=== PATIENT | female | born 1945 | race Caucasian/White ===

== ENCOUNTER 2017-10-27 08:28 | Inpatient (IN) | payer MEDICARE, OTHER ==
[2017-10-27] MEDS: IPRATRPIUM/ALBUTEROL 0.5/2.5MG 3 ML NEBU. NEB ×5 (09:00→19:58)
[2017-10-27] MEDS: methylPREDNISolone SOD SUCC PF 125 MG/2 ML VIAL. IV (09:02)
[2017-10-27 09:29] LABS: BASE EXCESS ABG 1 mmol/L (-3-3); HCO3 ABG 25 mmol/L (21-28); PCO2 ABG 35 mmHg (35-46); PH ABG 7.47 (7.35-7.45); PO2 ABG 84 mmHg (65-108); SAT O2 ABG 95 % (92-99)
[2017-10-27 09:33] LABS: BASO % 0 % (0-3); EOS # 0.2 x10^3/uL (0.0-0.7); EOS % 1 % (0-3); HEMATOCRIT 24.6 % (36.0-47.0); HEMOGLOBIN 8.3 g/dL (12.0-15.5); LYMPH # 0.8 x10^3/uL (1.0-4.8); LYMPH % 5 % (24-48); MEAN CORPUSCULAR HEMOGLOBIN 30 pg (25-35); MEAN CORPUSCULAR HGB CONC 34 g/dL (31-37); MEAN CORPUSCULAR VOLUME 89 fL (79-100); MONO # 1.3 x10^3/uL (0.0-1.1); MONO % 8 % (0-9); NEUT # 14.5 x10^3uL (1.8-7.7); NEUT % 86 % (31-73); PLATELET COUNT 207 x10^3/uL (140-400); RED BLOOD COUNT 2.77 x10^6/uL (3.50-5.40); RED CELL DISTRIBUTION WIDTH 15.3 % (11.5-14.5); WHITE BLOOD COUNT 16.8 x10^3/uL (4.0-11.0)
[2017-10-27 09:34] LABS: ADD MAN DIFF? YES
[2017-10-27 09:40] LABS: INR 1.2 (0.8-1.1); PROTHROMBIN TIME PATIENT 14.3 SEC (11.7-14.0)
[2017-10-27 09:44] LABS: ANION GAP 7 (6-14); BLOOD UREA NITROGEN 32 mg/dL (7-20); BUN/CREATININE RATIO 29 (6-20); CALCIUM 8.7 mg/dL (8.5-10.1); CARBON DIOXIDE 27 mmol/L (21-32); CHLORIDE 108 mmol/L (98-107); CREATININE 1.1 mg/dL (0.6-1.0); GFR 48.8; GLUCOSE 153 mg/dL (70-99); POTASSIUM 4.2 mmol/L (3.5-5.1); SODIUM 142 mmol/L (136-145)
[2017-10-27 09:50] LABS: ALBUMIN 2.7 g/dL (3.4-5.0); ALBUMIN/GLOBULIN RATIO 0.8 (1.0-1.7); ALK PHOS 85 U/L (46-116); ALT (SGPT) 22 U/L (14-59); AST (SGOT) 16 U/L (15-37); MAGNESIUM 1.8 mg/dL (1.8-2.4); TOTAL BILIRUBIN 0.6 mg/dL (0.2-1.0); TOTAL PROTEIN 5.9 g/dL (6.4-8.2)
[2017-10-27 09:52] LABS: % BANDS 6 % (0-9); % LYMPHS 7 % (24-48); % MONOS 6 % (0-10); % SEGS 81 % (35-66); PLT ESTIMATE ADEQUATE (ADEQUATE)
[2017-10-27 09:57] LABS: NT-PRO BNP 8246 pg/mL (0-124)
[2017-10-27 09:57] LABS: CKMB MASS 1.2 ng/mL (0.0-3.6); CREATINE KINASE 68 U/L (26-192)
[2017-10-27 09:58] LABS: THYROID STIM HORMONE (TSH) 2.292 uIU/mL (0.358-3.74)
[2017-10-27] MEDS: ASPIRIN 325 MG TABLET PO (10:09)
[2017-10-27] MEDS ORDERED: fentaNYL PF VIAL 100 MCG/2 ML VIAL IV (10:15)
[2017-10-27] MEDS ORDERED: ACETAMINOPHEN 325 MG TABLET. PO (10:15)
[2017-10-27] MEDS ORDERED: ONDANSETRON PF 4 MG/2 ML VIAL. IV ×2 (10:15→10:30)
[2017-10-27 10:17] LABS: OVALOCYTES FEW
[2017-10-27] MEDS ORDERED: hydrALAZINE 20 MG/ML VIAL. IVP ×2 (10:30→14:15)
[2017-10-27] MEDS ORDERED: IBUPROFEN 400 MG TABLET. PO (10:30)
[2017-10-27] MEDS ORDERED: guaiFENesin DM 200MG/20MG 10 ML SYRUP PO (10:30)
[2017-10-27 10:44] LABS: BILIRUBIN,URINE NEGATIVE (NEG); CLARITY,URINE CLEAR; GLUCOSE,URINE NEGATIVE (NEG); NITRITE,URINE NEGATIVE (NEG); PH,URINE 6.5; PROTEIN,URINE 30 mg/dL (NEG-TRACE); UROBILINOGEN,URINE 0.2 mg/dL (0.2 mg/dL)
[2017-10-27 10:49] LABS: COLOR,URINE YELLOW
[2017-10-27] MEDS: FUROSEMIDE 20 MG/2 ML VIAL. IVP ×2 (10:52→15:03)
[2017-10-27 11:02] LABS: AMORPHOUS SEDIMENT,UR PRESENT /HPF; SQUAMOUS EPITHELIAL CELL,UR FEW /LPF
[2017-10-27 11:03] LABS: BACTERIA,URINE FEW /HPF (0-FEW)
[2017-10-27] MEDS: SENNOSIDES/DOCUSATE 8.6/50MG TABLET. PO (11:30)
[2017-10-27] MEDS: CALCIUM CARB/VIT D3 250/125 TABLET. PO ×2 (11:30→17:41)
[2017-10-27] MEDS: hydroCHLOROthiazide 25 MG TABLET PO (11:30)
[2017-10-27] MEDS: DOCUSATE SODIUM 100 MG CAPSULE. PO ×2 (11:30→21:38)
[2017-10-27] MEDS: LEVOTHYROXINE 25 MCG TABLET. PO (11:30)
[2017-10-27] MEDS: LISINOPRIL 20 MG TABLET PO (11:30)
[2017-10-27] MEDS: CHOLECALCIFEROL (VITAMIN D3) 1,000 UNIT TABLET PO (11:30)
[2017-10-27] MEDS: cloZAPine 100 MG TABLET PO ×2 (11:30→21:39)
[2017-10-27] MEDS: EZETIMIBE 10 MG TABLET. PO (11:30)
[2017-10-27] MEDS: FLUoxetine HCL 20 MG CAPSULE PO (11:30)
[2017-10-27] MEDS: carBAMazepine 200 MG TABLET PO (11:30)
[2017-10-27] MEDS: NYSTATIN TOPICAL POWDER 15GM BOTTLE. TP ×2 (15:02→21:39)
[2017-10-27] MEDS: ENOXAPARIN 40 MG/0.4 ML SYRINGE. SQ (15:03)
[2017-10-27] MEDS: amLODIPine BESYLATE 5 MG TABLET PO (15:04)
[2017-10-27 16:24] LABS: TROPONINI 0.092 ng/mL (0.000-0.055)
[2017-10-27] MEDS ORDERED: cloZAPine 100 MG TABLET PO (21:00)
[2017-10-27] MEDS ORDERED: DOCUSATE CALCIUM 240 MG PO (21:00)
[2017-10-28 04:28] LABS: ALBUMIN 2.4 g/dL (3.4-5.0); ALBUMIN/GLOBULIN RATIO 0.8 (1.0-1.7); ALK PHOS 75 U/L (46-116); ALT (SGPT) 18 U/L (14-59); ANION GAP 11 (6-14); AST (SGOT) 14 U/L (15-37); BLOOD UREA NITROGEN 32 mg/dL (7-20); BUN/CREATININE RATIO 27 (6-20); CALCIUM 8.8 mg/dL (8.5-10.1); CARBON DIOXIDE 25 mmol/L (21-32); CHLORIDE 106 mmol/L (98-107); CREATININE 1.2 mg/dL (0.6-1.0); GFR 44.2; GLUCOSE 106 mg/dL (70-99); SODIUM 142 mmol/L (136-145); TOTAL BILIRUBIN 0.5 mg/dL (0.2-1.0); TOTAL PROTEIN 5.4 g/dL (6.4-8.2)
[2017-10-28] MEDS: LEVOTHYROXINE 25 MCG TABLET. PO (06:11)
[2017-10-28] MEDS: IPRATRPIUM/ALBUTEROL 0.5/2.5MG 3 ML NEBU. NEB ×3 (07:33→15:33)
[2017-10-28] MEDS: cloZAPine 100 MG TABLET PO (08:11)
[2017-10-28] MEDS: CALCIUM CARB/VIT D3 250/125 TABLET. PO (08:11)
[2017-10-28] MEDS: CHOLECALCIFEROL (VITAMIN D3) 1,000 UNIT TABLET PO (08:12)
[2017-10-28] MEDS: carBAMazepine 200 MG TABLET PO (08:12)
[2017-10-28] MEDS: SENNOSIDES/DOCUSATE 8.6/50MG TABLET. PO (08:12)
[2017-10-28] MEDS: amLODIPine BESYLATE 5 MG TABLET PO (08:13)
[2017-10-28] MEDS: FUROSEMIDE 40 MG TABLET. PO (08:14)
[2017-10-28] MEDS: DOCUSATE SODIUM 100 MG CAPSULE. PO (08:14)
[2017-10-28] MEDS: LISINOPRIL 20 MG TABLET PO (08:15)
[2017-10-28] MEDS: FLUoxetine HCL 20 MG CAPSULE PO (08:15)
[2017-10-28] MEDS: EZETIMIBE 10 MG TABLET. PO (08:16)
[2017-10-28] MEDS: NYSTATIN TOPICAL POWDER 15GM BOTTLE. TP (08:18)
[2017-10-28] MEDS ORDERED: FLUoxetine HCL 20 MG CAPSULE PO (09:00)
[2017-10-28] MEDS ORDERED: ALBUTEROL SULFATE 2.5 MG/3 ML NEBU. NEB (09:30)
[2017-10-28] MEDS: ENOXAPARIN 40 MG/0.4 ML SYRINGE. SQ (13:04)
== END 2017-10-28 15:30 | disposition home or self-care (01) | DRG 280 ==
LOC: ER 08:28 → 2 NORTH 10:09
DX: I25.10 Atherosclerotic heart disease of native coronary artery without angina pectoris (principal); I50.33 Acute on chronic diastolic (congestive) heart failure; I21.4 Non-ST elevation (NSTEMI) myocardial infarction; J96.21 Acute and chronic respiratory failure with hypoxia; I13.0 Hypertensive heart and chronic kidney disease with heart failure and stage 1 through stage 4 chronic kidney disease, or unspecified chronic kidney disease; F03.91 Unspecified dementia, unspecified severity, with behavioral disturbance; I44.2 Atrioventricular block, complete; J44.0 Chronic obstructive pulmonary disease with (acute) lower respiratory infection; N17.9 Acute kidney failure, unspecified; D64.9 Anemia, unspecified; E03.9 Hypothyroidism, unspecified; E78.00 Pure hypercholesterolemia, unspecified; E78.5 Hyperlipidemia, unspecified; F20.9 Schizophrenia, unspecified; I25.2 Old myocardial infarction; I73.9 Peripheral vascular disease, unspecified; K21.9 Gastro-esophageal reflux disease without esophagitis; N18.3 Chronic kidney disease, stage 3 (moderate); Z86.73 Personal history of transient ischemic attack (TIA), and cerebral infarction without residual deficits; Z87.01 Personal history of pneumonia (recurrent); F32.9 Major depressive disorder, single episode, unspecified; G47.00 Insomnia, unspecified; H26.9 Unspecified cataract; M19.90 Unspecified osteoarthritis, unspecified site; Z88.0 Allergy status to penicillin; Z88.2 Allergy status to sulfonamides; Z88.8 Allergy status to other drugs, medicaments and biological substances; Z98.49 Cataract extraction status, unspecified eye; Z53.20 Procedure and treatment not carried out because of patient's decision for unspecified reasons
CPT/HCPCS: 36415; 51701; 71045; 80053; 81001; 82553; 82805; 83735; 83880; 84443; 84484; 85007; 85025; 85610; 93005; 94640; 94760; 96365; 96375; 97162-GP; 97166-GO; 97530-GO; 97535-GO; 99285; 99285-25; J1650; J1956; J2930; J7620

== ENCOUNTER 2019-07-08 13:43 | Emergency (ER) | payer MEDICARE, OTHER ==
[~2019-07-08] VITALS: Ht 162.6 cm; Wt 88.0 kg
[~2019-07-08 13:43] MED LIST: CALC-178 PO; CARB200T PO; CEFP100T PO; CHOL10003 PO; CLOZ100T PO; CLOZ200T PO; DIPH25TA64 PO; DOCU-109 PO; DOCU240C13 PO; EZET10TA20 PO; FLUO20CA20 PO; FLUO40CA9 PO; FURO-68 PO; HYDR-2145 PO; HYDR12.58 PO; IBUP-1027 PO; IBUP200T77 PO; IPRA3AMP29 NEB; LEVO25TA4 PO; LISI-130 PO; LISI-334 PO; LISI10TA2 PO; MAGN400O7 PO; NYST15CR2 TP; NYST15PO9 TP; SENN1TAB29 PO
[2019-07-08] MEDS ORDERED: IV NORMAL SALINE 1000ML BAG 1,000 ML IV ONE (14:00)
--- NOTE | 2019-07-08 14:03 | PHYS DOC ---
Past Medical History Past Medical History: Anemia, Arthritis, Constipation, Depression, GERD, High Cholesterol, Hypertension, Hypothyroid, Schizophrenia, Other Additional Past Medical Histor: Varicose veins, PVD, Insomnia, OCD Past Surgical History: Cancer Surgery, Tonsillectomy, Other Additional Past Surgical Histo: right breast tumor removal, cataract surgery Smoking Status: Never Smoker Alcohol Use: Sober Drug Use: None Adult General Chief Complaint Chief Complaint: Weakness, Falls HPI HPI Patient is a 73 year old female who is brought to the ER by EMS from a long term facility secondary to increased falling today. The patient has a history of falls but reportedly has fallen 4 times today secondary to reported weakness and concern for possible UTI. A urinalysis was not able to be performed prior to transport. There is been no fever or chills. Patient does report a cough recently. She denies extremity pain or pain elsewhere from her falls and has not struck her head. No chest pain or shortness of breath. The patient was hypoxic slightly in the emergency department 87% on room air so she was placed on 2 L nasal cannula and she is now satting 95%. Review of Systems Review of Systems All other ROS is negative unless otherwise stated in HPI Current Medications Current Medications Current Medications Medications (Trade) Dose Ordered Sig/Flora Start Time Stop Time Status Last Admin Dose Admin Sodium Chloride 1,000 ml @ 1,000 mls/hr 1X ONCE 07/08/19 14:00 07/08/19 14:59 DC 07/08/19 14:44 1,000 MLS/HR Allergies Allergies Allergies Coded Allergies Type Severity Reaction Last Updated Verified Penicillins Allergy Intermediate HAS PREVIOUSLY TOLERATED CEFEPIME 10/14/17 Yes risperidone Allergy Intermediate 08/25/13 Yes sulfamethoxazole Allergy Intermediate 08/25/13 Yes trimethoprim Allergy Intermediate 08/25/13 Yes acetaminophen Adverse Reaction Intermediate AMS 03/13/15 Yes Physical Exam Physical Exam See above Constitutional: Well developed, well nourished, no acute distress, non-toxic appearance. [] HENT: Normocephalic, atraumatic, bilateral external ears normal, oropharynx moist, no oral exudates, nose normal. [] Eyes: PERRLA, EOMI, conjunctiva normal, no discharge. [] Neck: Normal range of motion, no tenderness, supple, no stridor. [] Cardiovascular:Heart rate regular rhythm, no murmur [] Lungs & Thorax: Bilateral breath sounds clear to auscultation [] Abdomen: Bowel sounds normal, soft, no tenderness, no masses, no pulsatile masses. [] Skin: Warm, dry, no erythema, erythematous rash underneath her breasts consistent with yeast infection Back: No tenderness, no CVA tenderness. [] Extremities: No tenderness, no cyanosis, no clubbing, ROM intact, no edema. [] Neurologic: Alert and oriented X 3, normal motor function, normal sensory function, no focal deficits noted. [] Psychologic: Affect normal, judgement normal, mood normal. [] Current Patient Data Vital Signs Vital Signs Date Time Temp Pulse Resp B/P (MAP) Pulse Ox O2 Delivery O2 Flow Rate FiO2 07/08/19 15:42 26 92 07/08/19 13:43 97.7 65 165/72 (103) Nasal Cannula 2.0 97.7 Lab Values Laboratory Tests Test 07/08/19 14:20 07/08/19 14:25 White Blood Count 9.3 x10^3/uL (4.0-11.0) Red Blood Count 3.40 x10^6/uL (3.50-5.40) L Hemoglobin 9.5 g/dL (12.0-15.5) L Hematocrit 29.1 % (36.0-47.0) L Mean Corpuscular Volume 86 fL (79-100) Mean Corpuscular Hemoglobin 28 pg (25-35) Mean Corpuscular Hemoglobin Concent 33 g/dL (31-37) Red Cell Distribution Width 15.9 % (11.5-14.5) H Platelet Count 254 x10^3/uL (140-400) Neutrophils (%) (Auto) 81 % (31-73) H Lymphocytes (%) (Auto) 8 % (24-48) L Monocytes (%) (Auto) 9 % (0-9) Eosinophils (%) (Auto) 1 % (0-3) Basophils (%) (Auto) 1 % (0-3) Neutrophils # (Auto) 7.5 x10^3/uL (1.8-7.7) Lymphocytes # (Auto) 0.8 x10^3/uL (1.0-4.8) L Monocytes # (Auto) 0.8 x10^3/uL (0.0-1.1) Eosinophils # (Auto) 0.1 x10^3/uL (0.0-0.7) Basophils # (Auto) 0.0 x10^3/uL (0.0-0.2) Prothrombin Time 14.0 SEC (11.7-14.0) Prothrombin Time INR 1.1 (0.8-1.1) Activated Partial Thromboplast Time 26 SEC (24-38) Sodium Level 143 mmol/L (136-145) Potassium Level 3.6 mmol/L (3.5-5.1) Chloride Level 106 mmol/L (98-107) Carbon Dioxide Level 29 mmol/L (21-32) Anion Gap 8 (6-14) Blood Urea Nitrogen 18 mg/dL (7-20) Creatinine 1.4 mg/dL (0.6-1.0) H Estimated GFR (Cockcroft-Gault) 36.9 Glucose Level 136 mg/dL (70-99) H Calcium Level 8.9 mg/dL (8.5-10.1) Troponin I Quantitative 0.029 ng/mL (0.000-0.055) JN-Ufz-[id number]-Type Natriuretic Peptide 7597 pg/mL (0-124) H Urine Collection Type Void Urine Color Yellow Urine Clarity Clear Urine pH 7.5 Urine Specific [place] 1.015 Urine Protein Negative mg/dL (NEG-TRACE) Urine Glucose (UA) Negative mg/dL (NEG) Urine Ketones (Stick) Negative mg/dL (NEG) Urine Blood Negative (NEG) Urine Nitrite Negative (NEG) Urine Bilirubin Negative (NEG) Urine Urobilinogen Dipstick 0.2 mg/dL (0.2 mg/dL) Urine Leukocyte Esterase Small (NEG) Urine RBC Rare /HPF (0-2) Urine WBC 5-10 /HPF (0-4) Urine Squamous Epithelial Cells Mod /LPF Urine Bacteria Moderate /HPF (0-FEW) Urine Mucus Mod /LPF Influenza Type A Antigen Negative (NEGATIVE) Influenza Type B Antigen Negative (NEGATIVE) Laboratory Tests 07/08/19 14:20 Laboratory Tests 07/08/19 14:20 EKG EKG []EKG shows a normal sinus rhythm with frequent PVCs and a normal [place], QRS intervals she has a prolonged QT interval. Radiology/Procedures Radiology/Procedures CHEST AP ONLY Clinical Indication: Weakness Comparison: 10/27/2017 Portable Chest X-ray Exam. Findings: AP frontal view of the chest was obtained. Patient is rotated and this may limit assessment. Heart size is within normal limits. Pulmonary vasculature is within the upper limit of normal. Left basilar pleural effusion is present. No pneumothorax. Osteopenia noted. Moderate right glenohumeral joint degenerative changes are present. IMPRESSION: Left basilar pleural effusion and atelectasis are similar to the prior exam. Correlate clinically in determining follow-up. []Examination: CT HEAD WO CONTRAST History: Fall, pain Comparison/Correlation: 08/25/2013 CT head without contrast Findings: Axial images of the head were obtained without contrast. Atrophy and chronic changes in the white matter are present. No intracranial hemorrhage, midline shift, or mass effect. 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 Right occipital lobe infarct is present and probably old. These findings however are not present on the prior exam. There is significant calcific involvement of the cavernous carotid arteries and vertebral arteries. Globes are unremarkable. Partial opacification of the left maxillary sinus is noted. Minimal opacities in the left sphenoid sinus is present. Bony structures are unremarkable. Impression: No intracranial hemorrhage. Infarcts are present and probably old. Correlate clinically in determining the need for further assessment. Course & Med Decision Making Course & Med Decision Making Pertinent Labs and Imaging studies reviewed. (See chart for details) We will obtain labs, EKG, chest x-ray and urinalysis and CT head to evaluate for frequent falls. This could be patient's baseline or she could have an underlying infection or intracranial injury. 1533: This completes and she does appear to have a small urinary tract inf ection but this is causing her increased falling. CT scan of her head was performed and showed what appears to be old infarcts. Her BNP is elevated but the patient does have congestive heart failure and she does not appear to be overtly symptomatic; she is currently on 1 L nasal cannula oxygen but when I review her records it appears that the patient has been hypoxic without oxygen since 2018. Nursing staff is currently calling the long term facility to see if the patient is normally on oxygen. 1545: long term reports that the patient is not normally on oxygen daily. We have weaned her off nasal cannula oxygen her oxygen saturation has remained 92% plus. This time she was discharged home with a prescription for Bactrim twice daily for 3 days [place] Disclaimer Dragon Disclaimer This electronic medical record was generated, in whole or in part, using a voice recognition dictation system. Departure Departure Impression: Primary Impression: Falls frequently Additional Impressions: UTI (urinary tract infection) Congestive heart failure Disposition: HOME, SELF-CARE (Back to long term) Condition: STABLE Referrals: MAL ONOFRE (PCP) Follow up in 5-7 days for ongoing falls Patient Instructions: Fall Prevention and Home Safety Scripts Sulfamethoxazole/Trimethoprim (BACTRIM DS TABLET) 1 Each Tablet 1 TAB PO BID for 3 Days, #6 TAB 0 Refills Prov: MAGDI DELGADO DO 07/08/19 Problem Qualifiers MAGDI DELGADO DO Jul 08, 2019 14:03
[2019-07-08 14:28] LABS: BASO % 1 % (0-3); EOS # 0.1 x10^3/uL (0.0-0.7); EOS % 1 % (0-3); HEMATOCRIT 29.1 % (36.0-47.0); HEMOGLOBIN 9.5 g/dL (12.0-15.5); LYMPH # 0.8 x10^3/uL (1.0-4.8); LYMPH % 8 % (24-48); MEAN CORPUSCULAR HEMOGLOBIN 28 pg (25-35); MEAN CORPUSCULAR HGB CONC 33 g/dL (31-37); MEAN CORPUSCULAR VOLUME 86 fL (79-100); MONO # 0.8 x10^3/uL (0.0-1.1); MONO % 9 % (0-9); NEUT # 7.5 x10^3/uL (1.8-7.7); NEUT % 81 % (31-73); PLATELET COUNT 254 x10^3/uL (140-400); RED CELL DISTRIBUTION WIDTH 15.9 % (11.5-14.5); WHITE BLOOD COUNT 9.3 x10^3/uL (4.0-11.0)
[2019-07-08 14:35] LABS: CALCIUM 8.9 mg/dL (8.5-10.1); CREATININE 1.4 mg/dL (0.6-1.0); GFR 36.9; POTASSIUM 3.6 mmol/L (3.5-5.1)
--- NOTE | 2019-07-08 14:47 | RAD ---
Examination: CT HEAD WO CONTRAST History: Fall, pain Comparison/Correlation: 08/25/2013 CT head without contrast Findings: Axial images of the head were obtained without contrast. Atrophy and chronic changes in the white matter are present. No intracranial hemorrhage, midline shift, or mass effect. 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 Right occipital lobe infarct is present and probably old. These findings however are not present on the prior exam. There is significant calcific involvement of the cavernous carotid arteries and vertebral arteries. Globes are unremarkable. Partial opacification of the left maxillary sinus is noted. Minimal opacities in the left sphenoid sinus is present. Bony structures are unremarkable. Impression: No intracranial hemorrhage. Infarcts are present and probably old. Correlate clinically in determining the need for further assessment. PQRS Compliance Statement: One or more of the following individualized dose reduction techniques were utilized for this examination: 1. Automated exposure control 2. Adjustment of the mA and/or kV according to patient size 3. Use of iterative reconstruction technique Electronically signed by: Zana Arias MD (07/08/2019 2:44 PM) [facility]
--- NOTE | 2019-07-08 14:48 | RAD ---
CHEST AP ONLY Clinical Indication: Weakness Comparison: 10/27/2017 Portable Chest X-ray Exam. Findings: AP frontal view of the chest was obtained. Patient is rotated and this may limit assessment. Heart size is within normal limits. Pulmonary vasculature is within the upper limit of normal. Left basilar pleural effusion is present. No pneumothorax. Osteopenia noted. Moderate right glenohumeral joint degenerative changes are present. IMPRESSION: Left basilar pleural effusion and atelectasis are similar to the prior exam. Correlate clinically in determining follow-up. Electronically signed by: Zana Arias MD (07/08/2019 2:45 PM) [facility]
[2019-07-08 15:00] LABS: BILIRUBIN,URINE NEGATIVE (NEG); CLARITY,URINE CLEAR; COLOR,URINE YELLOW; NITRITE,URINE NEGATIVE (NEG); PH,URINE 7.5; PROTEIN,URINE NEGATIVE (NEG-TRACE); UROBILINOGEN,URINE 0.2 mg/dL (0.2 mg/dL)
[2019-07-08 15:09] LABS: BACTERIA,URINE MODERATE /HPF (0-FEW); RBC,URINE RARE /HPF (0-2); SQUAMOUS EPITHELIAL CELL,UR MOD /LPF
[2019-07-08 15:22] LABS: INFLUENZA A PATIENT NEGATIVE (NEGATIVE); INFLUENZA B PATIENT NEGATIVE (NEGATIVE)
[2019-07-08] MEDS ORDERED: SULF1TAB24 PO (15:48)
--- NOTE | 2019-07-08 16:08 | EKG ---
[facility] [address] [place] [address] Test Date: 2019-07-08 Test Time: 13:56:39 Pat Name: BIRGIT MURCIA Department: Room: Gender: F Zipper Trimmer: : 1945 Requested By: MAGDI DELGADO Order Number: [id number] Reading MD: Measurements Intervals [place] Rate: 63 P: 90 MN: 164 QRS: 15 QRSD: 86 T: -8 QT: 522 QTc: 543 Interpretive Statements SINUS RHYTHM COMPLEX(ES) WITH ABERRANT INTRAVENTRICULAR CONDUCTION VENTRICULAR PREMATURE COMPLEX(ES), TRIGEMINY QRS(T) CONTOUR ABNORMALITY CANNOT RULE OUT ANTEROLATERAL MYOCARDIAL DAMAGE T ABNORMALITY IN ANTERIOR LEADS INFEROLATERAL LEADS PROLONGED QT ABNORMAL ECG No previous ECG available for comparison
[2019-07-08] MEDS ORDERED: SMZ/TMP 800/160MG TABLET. PO ONE (16:30)
[2019-07-08] MEDS ORDERED: NITROFURANTOIN MONOHYD/M-CRYST 100 MG CAPSULE. PO ONE (16:30)
[2019-07-08 17:44] VITALS: BP 173/79
== END 2019-07-08 18:04 | disposition home or self-care (01) ==
LOC: ER 13:43
DX: I11.0 Hypertensive heart disease with heart failure (principal); I50.9 Heart failure, unspecified; N39.0 Urinary tract infection, site not specified; Z91.81 History of falling; E78.00 Pure hypercholesterolemia, unspecified; K21.9 Gastro-esophageal reflux disease without esophagitis; E03.9 Hypothyroidism, unspecified; F20.9 Schizophrenia, unspecified; Z88.0 Allergy status to penicillin; Z88.1 Allergy status to other antibiotic agents; Z88.2 Allergy status to sulfonamides; Z88.6 Allergy status to analgesic agent; Z88.8 Allergy status to other drugs, medicaments and biological substances
CPT/HCPCS: 36415; 70450; 71045; 80048; 81001; 83880; 84484; 85025; 85610; 85730; 87086; 87804; 93005; 99285; J7030